=== PATIENT | female | born 1950 | race Caucasian/White ===

== ENCOUNTER 2017-06-04 14:20 | Emergency (ER) | payer OTHER, MEDICARE ==
[~2017-06-04] VITALS: Ht 154.9 cm; Wt 112.6 kg
[~2017-06-04 14:20] MED LIST: ADVIL200 MG PO; AMLODIPINE; AMLODIPINE BESYL5 MG PO; ASPIR 8181 M1 PO; ATORVASTATIN CA20 MG PO; CEPHALEXIN500 MG PO; DICLOFENAC; DICLOFENAC SODI75 MG PO; FISH OIL OMEGA1 EAC1 PO; LEVOFLOXACIN500 MG PO; LIPITOR; LIPITOR20 MG PO; LISINOPRIL; LISINOPRIL20 MG PO; MISOPROSTOL PO; MISOPROSTOL100 MCG PO; OMEPRAZOLE; OMEPRAZOLE20 MG PO; OMEPRAZOLE40 M1 PO; OXYCODONE HCL5 MG PO; REMICADE10 MG/ML; SENNA-DOCUSATE1 EAC1 PO; SERTRALINE HCL100 MG PO; SYNTHROID50 MCG PO; TYLENOL PM1 CAPLET PO; WARFARIN SODIU2.5 MG PO
[2017-06-04] MEDS ORDERED: SKELAXIN800 MG PO (15:53)
[2017-06-04 16:18] VITALS: BP 172/86
== END 2017-06-04 16:21 | disposition home or self-care (01) ==
LOC: EME 14:20
DX: S80.01XA Contusion of right knee, initial encounter (principal); S80.02XA Contusion of left knee, initial encounter; V49.40XA Driver injured in collision with unspecified motor vehicles in traffic accident, initial encounter; Z96.653 Presence of artificial knee joint, bilateral; I10 Essential (primary) hypertension; E78.00 Pure hypercholesterolemia, unspecified; Z79.82 Long term (current) use of aspirin
CPT/HCPCS: 73564; 99281; 99283